=== PATIENT | male | born 1970 | race Caucasian/White ===

== ENCOUNTER 2023-06-22 20:37 | Emergency (ER) | payer OTHER, SELFPAY ==
--- NOTE | ~2023-06-22 | CT_ITS ---
Non-contrast Head CT History: Hallucinations Technique: Axial non-contrast imaging of the brain was performed. Dose reduction technique was used on this scan by utilizing automated exposure control and iterative reconstruction technique. The dose -length product (DLP) was 681.00 mGy-cm. Findings: There is no evidence of intracranial hemorrhage, mass lesion, or acute infarct. Brain par enchyma appears normal. The ventricles and subarachnoid spaces are normal in size. The calvarium ap pears normal. The visualized paranasal sinuses and mastoid air cells are clear. Impression: No significant abnormality seen. Reviewed, dictated and finalized at location . Impression: No significant abnormality seen.
[2023-06-22 20:40] VITALS: BP 126/84; PULSE 74; RESP 18; TEMP 36.5; O2SAT 96
[2023-06-22 22:09] LABS: Basophils Absolute Auto 0.1 K/mm3 (0.0-0.1); Basophils Percent Auto 0.7 % (0.2-1.2); Eosinophils Absolute Auto 0.2 K/mm3 (0-0.3); Eosinophils Percent Auto 1.1 % (0-4.4); Hematocrit 46.3 % (42.0-52.0); Immature Granulocyte Absolute 0.05 K/mm3 (0.00-0.031); Immature Granulocyte Percent A 0.4 % (0-0.5); Lymphocytes Percent Auto 33.9 % (18.3-44.2); Mean Corpuscular HGB Conc 34.6 g/dl (32-36); Mean Corpuscular Hemoglobin 29.2 pg (26-34); Mean Corpuscular Volume 84.5 fl (80-100); Mean Platelet Volume 9.4 fl (7.4-10.4); Monocytes Percent Auto 7.5 % (2.6-8.5); Neutrophils Absolute Auto 7.7 K/mm3 (1.3-6.7); Neutrophils Percent Auto 56.4 % (45.5-73.1); Platelet Count Result 332 k/mm3 (150-375); Red Blood Count 5.48 M/mm3 (4.6-6.20); White Blood Count 13.6 K/mm3 (4.5-10.0)
[2023-06-22 22:11] LABS: Appearance Urine Clear (Clear); Bilirubin Urine Negative (Negative); Blood Urine Negative (Negative); Color Urine Yellow (Yellow); Glucose Urine UA Negative (Negative); Ketones Urine Trace mg/dL (Negative); Leukocyte Esterase Ur Negative LEU/UL (Negative); Nitrate Urine Negative (Negative); Protein Urine Negative (Negative); Specific Grav Ur 1.025 (1.001-1.035); pH Urine 5.5 (5.0-9.0)
[2023-06-22 22:17] LABS: Add Urine Microscopic? NO
[2023-06-22 22:18] LABS: Ethanol < 10 mg/dL (<10)
[2023-06-22 22:20] LABS: Alanine Aminotransferase 23 U/L (6-50); Albumin Level 4.3 g/dL (3.5-5.1); Alkaline Phosphatase 54 U/L (38-126); Anion Gap 7 mmol/L (4-12); Aspartate Amino Transferase 26 U/L (17-59); Bilirubin,Total 0.5 mg/dL (0.2-1.3); Blood Urea Nitrogen 12 mg/dL (9-20); Calcium 9.3 mg/dL (8.4-10.2); Carbon Dioxide 28 mmol/L (22-30); Chloride 103 mmol/L (98-107); Estimated CRCL calculation 76 ml/min; Estimated Glomerular Filt Rate > 60; Glucose 116 mg/dL (65-110); Potassium 3.4 mmol/L (3.4-5.0); Sodium 138 mmol/L (137-145)
[2023-06-22 22:27] LABS: Amphetamine Screen Urine Positive (Negative); Barbiturate Screen Urine Negative (Negative); Benzodiazepines Screen Urine Negative (Negative); Cannabinoid Screen Urine Positive (Negative); Cocaine Screen Urine Negative (Negative); Methadone Screen Urine Negative (Negative); Opiate Screen Urine Negative (Negative); Phencyclidine Screen Urine Negative (Negative)
[2023-06-22 22:46] LABS: SARS-CoV-2 RNA PCR Negative (Negative)
--- NOTE | 2023-06-23 01:36 | ED.ANXIETY ---
HPI - Anxiety General Chief Complaint: Anxiety Stated Complaint: SI Time Seen by Provider: 06/23/23 00:53 Source: patient Mode of arrival: ambulatory Limitations: no limitations History of Present Illness HPI narrative: Patient is a 53-year-old male who presents to the ED with report of anxiety and paranoia. Patient reports having increased anxiety, depression, paranoia over the last few weeks. States he has an unfavorable living condition and is currently with another man who is romantically involved with his ex-girlfriend. States this has become a problem for him. He has been hearing voices. He states he has heard this same voice for the last 1 year. Has become more bothersome and prominent recently. Denies visual hallucinations. He denies any suicidal ideation or thoughts of self-harm. Denies homicidal ideation. Denies previous suicide attempts. He does not have an official diagnosis of depression or anxiety, has never seen a psychiatrist, has never been on psychiatric medications. Is interested in inpatient psychiatric treatment. Patient smokes marijuana. Denies other drug use. States he did recently loaned his friend his pipe and when he used the pipe again, it did not taste normal. Review of Systems Review of Systems: CONSTITUTIONAL: Denies fever, chills, or sweats. CARDIOVASCULAR: Denies chest pain. RESPIRATORY: Denies dyspnea. GASTROINTESTINAL: Denies abdominal pain, nausea, vomiting NEUROLOGIC: Denies headache, dizziness, numbness, or weakness. PSYCHIATRIC: see HPI All systems reviewed & are unremarkable except as noted in HPI and below PMFSH Social History Social History Substance use type: does not use Exam Narrative: GENERAL: Appears older than stated age, well-nourished, non-toxic, in no acute distress. HEAD: Normocephalic, atraumatic. ENT: Poor dentition. RESPIRATORY: Airway patent, respirations nonlabored. Clear to auscultation bilaterally, no rales, rhonchi, wheezing. CARDIOVASCULAR: Regular rate and rhythm MUSCULOSKELETAL: Moves all extremities. No gross deformities. SKIN: Warm, dry, normal color. NEURO: A&O X3. Speech clear. Cranial nerves II-XII grossly intact. Steady gait. No ataxic movements. No focal deficits. PSYCHIATRIC: Anxious, fidgety, mildly paranoid, does not appear to be responding to external stimuli. Normal interaction. Course Vital Signs Vital signs: Vital Signs Temperature 97.7 F 06/22/23 20:40 Pulse Rate 74 06/22/23 20:40 Respiratory Rate 18 06/22/23 20:40 Blood Pressure 126/84 06/22/23 20:40 Pulse Oximetry 96 06/22/23 20:40 Oxygen Delivery Room Air 06/22/23 20:40 Temperature 97.7 F 06/22/23 20:40 Pulse Rate 74 06/22/23 20:40 Respiratory Rate 18 06/22/23 20:40 Blood Pressure 126/84 06/22/23 20:40 Pulse Oximetry 96 06/22/23 20:40 Oxygen Delivery Room Air 06/22/23 20:40 MDM - Anxiety MDM Narrative Medical decision making narrative: Patient presented to ED with anxiety, depression, paranoia, auditory hallucinations. Vital signs are stable upon arrival. Patient in no acute distress. Denying SI or HI. ED psych workup initiated. Laboratory studies unremarkable. Urine drug screen positive for cannabinoids and amphetamines. Patient denies drug use aside from marijuana use. CT brain unremarkable. Patient medically cleared to undergo psychiatric evaluation by crisis. Crisis evaluated patient and determine him to meet criteria for inpatient psychiatric placement. Patient is under voluntary status at this time. Awaiting inpatient bed. Patient resting comfortably. Has been pleasant and cooperative throughout ED stay. Medical Records Attestation: I reviewed the patient's medical records. Lab Data Attestation: I reviewed the patient's lab results. 06/22/23 21:57 06/22/23 21:57 Labs: Lab Results 06/22/23 06/22/23 Range/Units 21
--- NOTE | 2023-06-23 03:53 | PC.NURSE ---
Pt to be voluntarily placed in inpatient psych treatment. Pt has remained calm and cooperative.
[2023-06-23 04:29] VITALS: BP 126/88; PULSE 71; RESP 17; TEMP 36.4; O2SAT 99
--- NOTE | 2023-06-23 05:08 | PC.NURSE ---
Pt has been accepted to [facility]. Awaiting a call from intake with room placement and accepting provider.
--- NOTE | 2023-06-23 05:38 | PC.NURSE ---
Nurse report given to Lesli JUARES @[id number]
== END 2023-06-23 06:42 ==
PROVIDERS: Emergency Medicine; Emergency Provider Physician Assistant
DX: F41.9 Anxiety disorder, unspecified (principal); F22 Delusional disorders; Z11.52 Encounter for screening for COVID-19
CPT/HCPCS: 36415; 70450; 80053; 80307; 81003; 84443; 85025; 87635; 99284; 99285